=== PATIENT | female | born 1970 | race Hispanic/Latino ===

== ENCOUNTER 2017-10-01 19:14 | Emergency (ER) | payer SELFPAY ==
[2017-10-01] MEDS ORDERED: HYDROCODONE/APAP 10/325 TAB ONE (19:41)
--- NOTE | 2017-10-01 20:03 | RAD REPORT ---
EXAM DESCRIPTION: RAD - Chest Pa And Lat (2 Views) - 10/01/2017 7:53 pm CLINICAL HISTORY: Blunt force trauma to the chest, chest pain COMPARISON: None. TECHNIQUE: PA and lateral views of the chest were obtained. FINDINGS: The lungs are clear. Heart size is normal and central vasculature is within normal limit s. No pleural effusion or pneumothorax seen. No gross rib abnormality seen. No acute bone finding s uspected. No aortic abnormality. IMPRESSION: No acute cardiopulmonary process.
--- NOTE | 2017-10-01 20:08 | EDPHYS ---
Physician Documentation [facility] Name: Chelle Gaxiola Age: 47 yrs Sex: Female : 1970 Arrival Date: 10/01/2017 Time: 19:16 Bed 19 Private MD: ED Physician Tino Jamison HPI: 10/01 19:38 This 47 yrs old Female presents to ER via Ambulatory with complaints of Fall rn Injury, to chest. 19:38 Details of fall: The patient fell from an upright position, while walking. Onset: The rn symptoms/episode began/occurred 5 day(s) ago. Associated injuries: The patient sustained injury to the chest. Severity of symptoms: At their worst the symptoms were mild, in the emergency department the symptoms are unchanged. The patient has not experienced similar symptoms in the past. Reports fell in rain, landed chest first on concrete, no other injuries, hurts to left breast and left chest wall, hurts to move and breathe. Not on anticoagulation.. EQUIPMENT TESTER: 19:23 LMP 09/23/2017 ak1 Historical: - Allergies: 19:23 No Known Allergies; ak1 - Home Meds: 19:23 Januvia oral oral [Active]; Metformin Oral [Active]; ak1 - PMHx: 19:23 Diabetes - NIDDM; ak1 - PSHx: 19:23 ; ak1 - Immunization history:: Adult Immunizations unknown. - Social history:: Smoking status: Patient/guardian denies using tobacco. - Ebola Screening: : No symptoms or risks identified at this time. - Family history:: not pertinent. - Hospitalizations: : No recent hospitalization is reported. ROS: 19:38 Constitutional: Negative for fever, chills, and weight loss, Eyes: Negative for injury, rn pain, redness, and discharge, ENT: Negative for injury, pain, and discharge, Neck: Negative for injury, pain, and swelling, Cardiovascular: + chest pain Respiratory: + pleuritic chest pain, no wheezing Abdomen/GI: Negative for abdominal pain, nausea, vomiting, diarrhea, and constipation, Back: Negative for injury and pain, MS/Extremity: Negative for injury and deformity, Skin: Negative for injury, rash, and discoloration, Neuro: Negative for headache, weakness, numbness, tingling, and seizure. Exam: 19:38 Constitutional: This is a well developed, well nourished patient who is awake, alert, rn and in no acute distress. Head/Face: Normocephalic, atraumatic. Chest/axilla: Normal chest wall appearance and motion. + mild tenderness left anterior chest wall and left breast without crepitus/hematoma Cardiovascular: Regular rate and rhythm with a normal S1 and S2. No gallops, murmurs, or rubs. Normal PMI, no JVD. No pulse deficits. Respiratory: Lungs have equal breath sounds bilaterally, clear to auscultation and percussion. No rales, rhonchi or wheezes noted. No increased work of breathing, no retractions or nasal flaring. Vital Signs: 19:23 BP 120 / 79; Pulse 98; Resp 16; Temp 98.1; Pulse Ox 100% on R/A; Weight 63.05 kg; ak1 Height 4 ft. 11 in. (149.86 cm); Pain 10/10; 20:06 BP 116 / 68; Pulse 83; Resp 16; Pulse Ox 98% on R/A; rv 19:23 Body Mass Index 28.07 (63.05 kg, 149.86 cm) ak1 MDM: 19:28 Patient medically screened. rn 20:05 Differential diagnosis: contusion, fracture. Data reviewed: vital signs, nurses notes, rn radiologic studies, plain films, and as a result, I will discharge patient. Counseling: I had a detailed discussion with the patient and/or guardian regarding: the historical points, exam findings, and any diagnostic results supporting the discharge/admit diagnosis, radiology results, the need for outpatient follow up, to return to the emergency department if symptoms worsen or persist or if there are any questions or concerns that arise at home. Special discussion: Based on the patient's history, exam, and Dx evaluation, there is no indication for emergent intervention or inpatient Tx. It is understood by the patient/guardian that if the Sx's persist or worsen they need to return immediately for re-evaluation. I discussed with the patient/guardian in detail that at this point there is no indication for admission to the hospital. It is understood, however, that if the symptoms persist or worsen the patient needs to return immediately for re-evaluation. 10/01 19:33 Order name: XRAY Chest Pa And Lat (2 Views); Complete Time: 20:05 rn Administered Medications: 19:45 Drug: [place] 10 mg-325 mg 1 tabs Route: PO; rv 20:12 Follow up: Response: Medication administered at discharge. rv Disposition: 10/01/17 20:07 Discharged to Home. Impression: Chest wall contusion. - Condition is Stable. - Discharge Instructions: Chest Contusion. - Medication Reconciliation Form, Thank You Letter, Antibiotic Education, Prescription Opioid Use form. - Follow up: Private Physician; When: As needed; Reason: Recheck today's complaints, Re-evaluation by your physician. - Problem is new. - Symptoms have improved. Signatures: Dispatcher [employer] EDMS Tino Jamison MD MD rn Donna Childress RN RN ak1 Wes Hudson RN RN rv Corrections: (The following items were deleted from the chart) 20:29 20:07 10/01/2017 20:07 Discharged to Home. Impression: Chest wall contusion. Condition rv is Stable. Forms are Medication Reconciliation Form, Thank You Letter, Antibiotic Education, Prescription Opioid Use. Follow up: Private Physician; When: As needed; Reason: Recheck today's complaints, Re-evaluation by your physician. Problem is new. Symptoms have improved. rn
--- NOTE | 2017-10-01 20:08 | ER ---
Nurse's Notes [facility] Name: Chelle Gaxiola Age: 47 yrs Sex: Female : 1970 Arrival Date: 10/01/2017 Time: 19:16 Bed 19 Private MD: Diagnosis: Chest wall contusion Presentation: 10/01 19:22 Presenting complaint: Patient states: left chest wall pain since s/p slip and ak1 fall in the rain. Transition of care: patient was not received from another setting of care. Onset of symptoms is unknown. Risk Assessment: Do you want to hurt yourself or someone else? Patient reports no desire to harm self or others. Initial Sepsis Screen: Does the patient meet any 2 criteria? No. Patient's initial sepsis screen is negative. Does the patient have a suspected source of infection? No. Patient's initial sepsis screen is negative. Care prior to arrival: None. 19:22 Method Of Arrival: Ambulatory ak1 19:22 Acuity: VANESA 4 ak1 INVESTIGATOR UTILITY BILL COMPLAINTS: 19:23 LMP 09/23/2017 ak1 Historical: - Allergies: 19:23 No Known Allergies; ak1 - Home Meds: 19:23 Januvia oral oral [Active]; Metformin Oral [Active]; ak1 - PMHx: 19:23 Diabetes - NIDDM; ak1 - PSHx: 19:23 ; ak1 - Immunization history:: Adult Immunizations unknown. - Social history:: Smoking status: Patient/guardian denies using tobacco. - Ebola Screening: : No symptoms or risks identified at this time. - Family history:: not pertinent. - Hospitalizations: : No recent hospitalization is reported. Screenin:24 Abuse screen: Denies threats or abuse. Denies injuries from another. Nutritional ak1 screening: No deficits noted. Tuberculosis screening: No symptoms or risk factors identified. Fall Risk None identified. Assessment: 19:29 General: Appears in no apparent distress. comfortable, Behavior is calm, cooperative. rv Pain: Complains of pain in left clavicle, anterior aspect of left upper chest and left breast Pain radiates to left arm. Neuro: Level of Consciousness is awake, alert, obeys commands, Oriented to person, place, time, situation. Cardiovascular: Heart tones S1 S2 present. Respiratory: Airway is patent. GI: No signs and/or symptoms were reported involving the gastrointestinal system. : No signs and/or symptoms were reported regarding the genitourinary system. EENT: No signs and/or symptoms were reported regarding the EENT system. Derm: No signs and/or symptoms reported regarding the dermatologic system. Derm: Skin is intact. Musculoskeletal: No signs and/or symptoms reported regarding the musculoskeletal system. 19:46 Reassessment: patient on the way to radiology. rv 19:55 Reassessment: patient came back from radiology. awaiting result. rv Vital Signs: 19:23 BP 120 / 79; Pulse 98; Resp 16; Temp 98.1; Pulse Ox 100% on R/A; Weight 63.05 kg; ak1 Height 4 ft. 11 in. (149.86 cm); Pain 10/10; 20:06 BP 116 / 68; Pulse 83; Resp 16; Pulse Ox 98% on R/A; rv 19:23 Body Mass Index 28.07 (63.05 kg, 149.86 cm) ak1 ED Course: 19:16 Patient arrived in ED. es 19:22 Triage completed. ak1 19:23 Arm band placed on Patient placed in an exam room, on a stretcher, Patient notified of ak1 wait time. 19:24 Patient has correct armband on for positive identification. ak1 19:28 Tino Jamison MD is Attending Physician. rn 19:46 Patient moved to radiology via wheelchair. jb2 19:52 XRAY Chest Pa And Lat (2 Views) In Process Unspecified. EDMS 20:10 No provider procedures requiring assistance completed. Patient did not have IV access rv during this emergency room visit. Administered Medications: 19:45 Drug: [place] 10 mg-325 mg 1 tabs Route: PO; rv 20:12 Follow up: Response: Medication administered at discharge. rv Outcome: 20:07 Discharge ordered by . rn 20:10 Discharged to home ambulatory. rv 20:10 Condition: good 20:10 Discharge instructions given to patient, Instructed on discharge instructions. 20:29 Patient left the ED. rv Signatures: Dispatcher [employer] EDMS Taty Mcintyre Jesse jb2 Tino Jamison MD MD rn Krenek, Amber, RN RN ak1 Wes Hudson RN RN rv
== END 2017-10-01 20:29 | disposition home or self-care (01) ==
LOC: ER 19:14
DX: S20.219A Contusion of unspecified front wall of thorax, initial encounter (principal); E11.9 Type 2 diabetes mellitus without complications; W18.09XA Striking against other object with subsequent fall, initial encounter; Y93.9 Activity, unspecified; Y92.9 Unspecified place or not applicable; Y99.9 Unspecified external cause status
CPT/HCPCS: 71046; 99283